=== PATIENT | male | born 1995 | race Hispanic/Latino ===

== ENCOUNTER 2018-06-26 13:08 | Emergency (ER) | payer MEDICAID ==
[~2018-06-26 13:08] MED LIST: CIPR-279 PO; flomax PO; tramadol PO
[2018-06-26 14:05] LABS: BASOPHILS % (AUTO) 0.8 % (0.0-5.0); EOSINOPHILS % (AUTO) 1.7 % (0.0-8.0); HEMATOCRIT 43.8 % (42-54); LYMPHOCYTES % (AUTO) 19.2 % (21.0-51.0); MEAN CORPUSCULAR HEMOGLOBIN 28.1 pg (27.0-33.0); MEAN CORPUSCULAR HGB CONC 33.7 g/dL (32.0-36.0); MEAN CORPUSCULAR VOLUME 83.3 fL (79-99); MONOCYTES % (AUTO) 3.9 % (3.0-13.0); NEUTROPHILS % (AUTO) 74.4 % (40.0-77.0); NUCLEATED RED BLOOD CELLS 0.1 % (0.0-0.19); PLATELET COUNT (AUTO) 222 K/uL (130-400); RED BLOOD CELL COUNT(AUTO) 5.26 MIL/uL (4.50-6.20); RED CELL DISTRIBUTION WIDTH 15.2 % (11.0-15.5); WHITE BLOOD COUNT (AUTO) 8.9 K/uL (4.8-10.8)
[2018-06-26 15:03] LABS: APPEARANCE,URINE Cloudy (CLEAR); BILIRUBIN,URINE Negative (NEGATIVE); COLOR,URINE Yellow (YELLOW); GLUCOSE, URINE (UA) Negative (NEGATIVE); KETONES,URINE Negative (NEGATIVE); LEUKOCYTE ESTERASE ,URINE Negative (NEGATIVE); NITRATE,URINE Negative (NEGATIVE); OCCULT BLOOD,URINE Negative (NEGATIVE); PROTEIN,URINE Negative (NEGATIVE)
[2018-06-26 15:10] LABS: AMORPHOUS SEDIMENT,UR Rare /LPF (None Seen)
[2018-06-26 15:11] LABS: MUCUS,URINE Few LPF (None Seen); SQUAMOUS EPITHELIAL CELL,UR 0-2 /HPF (0-2)
[2018-06-26 15:12] LABS: BACTERIA,URINE Few /HPF (None Seen); RBC,URINE 0-1 /HPF (0-1); WBC,URINE 0-1 /HPF (0-1)
[2018-06-26 16:43] LABS: BILIRUBIN,TOTAL 0.6 mg/dL (0.2-1.0); CREATININE 0.2 mg/dL (0.5-1.5); POTASSIUM 3.7 mmol/L (3.5-5.1); TOTAL PROTEIN, SERUM 8.4 g/dL (6.0-8.3)
[2018-06-26] MEDS ORDERED: KETOROLAC TROMETHAMINE 15MG/ML ONE (17:17)
== END 2018-06-26 17:56 | disposition home or self-care (01) ==
LOC: EDH 13:08
DX: K59.00 Constipation, unspecified (principal)
CPT/HCPCS: 36415; 76705; 80053; 81001; 83690; 85025; 96374; 99285; J1885

== ENCOUNTER 2019-04-02 10:42 | Emergency (ER) | payer MEDICAID ==
[2019-04-02] MEDS ORDERED: IPRATROPIUM/ALBUTEROL SULFATE 3 ML SOLUTION IH ONE (11:09)
[2019-04-02 11:27] LABS: BASOPHILS % (AUTO) 0.7 % (0.0-5.0); EOSINOPHILS % (AUTO) 1.8 % (0.0-8.0); HEMATOCRIT 44.3 % (42-54); LYMPHOCYTES % (AUTO) 23.4 % (21.0-51.0); MEAN CORPUSCULAR HEMOGLOBIN 27.1 pg (27.0-33.0); MEAN CORPUSCULAR HGB CONC 32.6 g/dL (32.0-36.0); MEAN CORPUSCULAR VOLUME 83.1 fL (79-99); MONOCYTES % (AUTO) 5.4 % (3.0-13.0); NEUTROPHILS % (AUTO) 68.7 % (40.0-77.0); PLATELET COUNT (AUTO) 206 K/uL (130-400); RED BLOOD CELL COUNT(AUTO) 5.33 MIL/uL (4.50-6.20); RED CELL DISTRIBUTION WIDTH 15.7 % (11.0-15.5); WHITE BLOOD COUNT (AUTO) 7.8 K/uL (4.8-10.8)
[2019-04-02 11:37] LABS: CREATININE 0.2 mg/dL (0.5-1.5); POTASSIUM 3.6 mmol/L (3.5-5.1)
[2019-04-02 11:43] LABS: ALBUMIN 3.7 g/dL (3.5-5.0); BILIRUBIN,TOTAL 0.4 mg/dL (0.2-1.0); TOTAL PROTEIN, SERUM 7.4 g/dL (6.0-8.3)
== END 2019-04-02 14:27 | disposition home or self-care (01) ==
LOC: EDH 10:42
DX: J20.9 Acute bronchitis, unspecified (principal); M41.9 Scoliosis, unspecified
CPT/HCPCS: 36415; 71045; 80053; 82550; 84484; 85025; 93005; 94640

== ENCOUNTER 2019-09-05 08:27 | Emergency (ER) | payer MEDICAID ==
[2019-09-05 08:57] LABS: BASOPHILS % (AUTO) 0.2 % (0.0-5.0); EOSINOPHILS % (AUTO) 1.8 % (0.0-8.0); LYMPHOCYTES % (AUTO) 28.4 % (21.0-51.0); MEAN CORPUSCULAR HEMOGLOBIN 26.4 pg (27.0-33.0); MEAN CORPUSCULAR HGB CONC 30.9 g/dL (32.0-36.0); MEAN CORPUSCULAR VOLUME 85.4 fL (79-99); MONOCYTES % (AUTO) 5.3 % (3.0-13.0); NEUTROPHILS % (AUTO) 63.5 % (40.0-77.0); PLATELET COUNT (AUTO) 262 K/uL (130-400); RED BLOOD CELL COUNT(AUTO) 5.27 MIL/uL (4.50-6.20); RED CELL DISTRIBUTION WIDTH 15.3 % (11.0-15.5); WHITE BLOOD COUNT (AUTO) 9.2 K/uL (4.8-10.8)
[2019-09-05] MEDS ORDERED: IPRATROPIUM/ALBUTEROL SULFATE 3 ML SOLUTION IH ONE (09:00)
[2019-09-05 09:12] LABS: CREATININE 0.3 mg/dL (0.5-1.5); POTASSIUM 3.8 mmol/L (3.5-5.1)
[2019-09-05 09:16] LABS: ALBUMIN 3.9 g/dL (3.5-5.0); BILIRUBIN,DIRECT 0.1 mg/dL (0.0-0.3); BILIRUBIN,TOTAL 0.3 mg/dL (0.2-1.0); TOTAL PROTEIN, SERUM 7.8 g/dL (6.0-8.3)
[2019-09-05 10:37] LABS: B-TYPE NATRIURETIC PEPTIDE < 5 pg/mL (0-100)
== END 2019-09-05 10:22 | disposition home or self-care (01) ==
LOC: EDH 08:27
DX: R06.00 Dyspnea, unspecified (principal); G82.20 Paraplegia, unspecified; M41.9 Scoliosis, unspecified; Z91.010 Allergy to peanuts; Z91.018 Allergy to other foods
CPT/HCPCS: 36415; 71045; 80048; 80076; 83690; 83880; 84484; 85025; 93005; 94640

== ENCOUNTER 2021-02-07 14:30 | Emergency (ER) | payer MEDICAID | END 2021-02-07 16:23 | disposition left against medical advice (07) | LOC: EDH 14:30 | DX: R10.9 Unspecified abdominal pain (principal); Z91.010 Allergy to peanuts; Z91.018 Allergy to other foods; Z53.21 Procedure and treatment not carried out due to patient leaving prior to being seen by health care provider ==

== ENCOUNTER 2024-05-01 18:09 | Emergency (ER) | payer MEDICAID ==
[~2024-05-01] VITALS: Ht 162.6 cm; Wt 76.7 kg
[2024-05-01 20:26] LABS: BASOPHILS # (AUTO) 0.04 K/uL (0.00-0.20); BASOPHILS % (AUTO) 0.4 % (0.0-5.0); EOSINOPHILS # (AUTO) 0.16 K/uL (0.00-0.70); EOSINOPHILS % (AUTO) 1.7 % (0.0-8.0); HEMATOCRIT 46.3 % (42-54); IMMATURE GRANULOCYTE ABSOLUTE 0.03 K/uL (0-1); LYMPHOCYTES # (AUTO) 2.4 K/uL (1.0-4.8); LYMPHOCYTES % (AUTO) 26.3 % (21.0-51.0); MEAN CORPUSCULAR HEMOGLOBIN 26.5 pg (27.0-33.0); MEAN CORPUSCULAR HGB CONC 32.2 g/dL (32.0-36.0); MEAN CORPUSCULAR VOLUME 82.2 fL (79-99); MONOCYTES # (AUTO) 0.5 K/uL (0.1-1.0); MONOCYTES % (AUTO) 4.9 % (3.0-13.0); NEUTROPHILS # (AUTO) 6.1 K/uL (1.8-7.7); NEUTROPHILS % (AUTO) 66.4 % (40.0-77.0); PLATELET COUNT (AUTO) 279 K/uL (130-400); RED BLOOD CELL COUNT(AUTO) 5.63 MIL/uL (4.50-6.20); RED CELL DISTRIBUTION WIDTH 15.5 % (11.0-15.5); WHITE BLOOD COUNT (AUTO) 9.3 K/uL (4.8-10.8)
[2024-05-01 20:39] LABS: CREATININE 0.4 mg/dL (0.5-1.3); POTASSIUM 3.5 mmol/L (3.5-5.1)
[2024-05-01 20:44] LABS: APPEARANCE,URINE CLEAR (CLEAR); BILIRUBIN,URINE NEGATIVE (NEGATIVE); COLOR,URINE LIGHT-YELLOW (YELLOW); GLUCOSE, URINE (UA) NEGATIVE (NEGATIVE); KETONES,URINE 20 mg/dL (NEGATIVE); LEUKOCYTE ESTERASE ,URINE NEGATIVE Leu/uL (NEGATIVE); NITRATE,URINE NEGATIVE (NEGATIVE); OCCULT BLOOD,URINE MODERATE (NEGATIVE); PROTEIN,URINE 10 mg/dL (NEGATIVE); UROBILINOGEN,URINE 0.2 mg/dL (0.2-1.0)
[2024-05-01 20:49] LABS: ALBUMIN 3.8 g/dL (3.5-5.0); BILIRUBIN,TOTAL 0.6 mg/dL (0.2-1.0); TOTAL PROTEIN, SERUM 7.8 g/dL (6.0-8.3)
[2024-05-01 20:51] LABS: ADD UA MICROSCOPIC YES
[2024-05-01 20:52] LABS: AMPHET/METH SCREEN,URINE NEGATIVE (NEGATIVE); BARBITURATE SCREEN, URINE NEGATIVE (NEGATIVE); BENZODIAZEPINES SCREEN,URINE NEGATIVE (NEGATIVE); CANNABINOID SCREEN,URINE NEGATIVE (NEGATIVE); COCAINE SCREEN,URINE NEGATIVE (NEGATIVE); OPIATE SCREEN,URINE NEGATIVE (NEGATIVE); PHENCYCLIDINE SCREEN,URINE NEGATIVE (NEGATIVE)
[2024-05-01 20:56] LABS: BACTERIA,URINE RARE /HPF (None Seen); MUCUS,URINE FEW LPF (None Seen); RBC,URINE 26-50 /HPF (0-1); SQUAMOUS EPITHELIAL CELL,UR RARE /HPF (0-2)
[2024-05-01 21:43] VITALS: BP 121/74; PULSE 88; RESP 20; O2SAT 97
== END 2024-05-01 21:56 | disposition home or self-care (01) ==
LOC: EDH 18:09
DX: F41.9 Anxiety disorder, unspecified (principal); R07.89 Other chest pain; Z79.899 Other long term (current) drug therapy; Z98.890 Other specified postprocedural states
CPT/HCPCS: 36415; 80053; 80305; 81001; 84484; 85025; 93005

== ENCOUNTER 2024-07-11 21:18 | Emergency (ER) | payer MEDICAID ==
[~2024-07-11] VITALS: Ht 167.6 cm; Wt 77.1 kg
[~2024-07-11 21:18] MED LIST changes: +HYDR-3421 PO
--- NOTE | 2024-07-11 21:22 | NUR ---
COVID, FLU AND STREP SWABS COLLECTED AND SENT [facility] PROVIDED
[2024-07-11 21:48] LABS: APPEARANCE,URINE CLEAR (CLEAR); BILIRUBIN,URINE NEGATIVE (NEGATIVE); COLOR,URINE LIGHT-YELLOW (YELLOW); GLUCOSE, URINE (UA) NEGATIVE (NEGATIVE); KETONES,URINE 150 mg/dL (NEGATIVE); LEUKOCYTE ESTERASE ,URINE NEGATIVE Leu/uL (NEGATIVE); NITRATE,URINE NEGATIVE (NEGATIVE); OCCULT BLOOD,URINE MODERATE (NEGATIVE); PROTEIN,URINE NEGATIVE (NEGATIVE); UROBILINOGEN,URINE 0.2 mg/dL (0.2-1.0)
[2024-07-11 21:51] LABS: ADD UA MICROSCOPIC YES
[2024-07-11 21:52] LABS: MUCUS,URINE RARE LPF (None Seen); RBC,URINE >100 /HPF (0-1); SQUAMOUS EPITHELIAL CELL,UR RARE /HPF (0-2)
[2024-07-11 21:58] LABS: RAPID GROUP A STREP negative (NEGATIVE)
[2024-07-11 22:06] LABS: SARS-CoV-2, RNA, NAAT NEGATIVE SARS CoV-2 (NEGATIVE)
[2024-07-11 22:08] LABS: INFLUENZA TYPE A Negative For Type A (NEGATIVE); INFLUENZA TYPE B Negative For Type B (NEGATIVE)
[2024-07-11 22:09] LABS: BASOPHILS # (AUTO) 0.03 K/uL (0.00-0.20); BASOPHILS % (AUTO) 0.3 % (0.0-5.0); EOSINOPHILS # (AUTO) 0.09 K/uL (0.00-0.70); HEMATOCRIT 49.3 % (42-54); IMMATURE GRANULOCYTE ABSOLUTE 0.05 K/uL (0-1); LYMPHOCYTES # (AUTO) 2.4 K/uL (1.0-4.8); LYMPHOCYTES % (AUTO) 27.9 % (21.0-51.0); MEAN CORPUSCULAR HEMOGLOBIN 26.4 pg (27.0-33.0); MEAN CORPUSCULAR HGB CONC 32.5 g/dL (32.0-36.0); MEAN CORPUSCULAR VOLUME 81.4 fL (79-99); MONOCYTES # (AUTO) 0.3 K/uL (0.1-1.0); MONOCYTES % (AUTO) 3.9 % (3.0-13.0); NEUTROPHILS # (AUTO) 5.7 K/uL (1.8-7.7); NEUTROPHILS % (AUTO) 66.3 % (40.0-77.0); PLATELET COUNT (AUTO) 298 K/uL (130-400); RED BLOOD CELL COUNT(AUTO) 6.06 MIL/uL (4.50-6.20); WHITE BLOOD COUNT (AUTO) 8.6 K/uL (4.8-10.8)
[2024-07-11] MEDS: ondanSETRON 4MG INJ IVP ONE (22:10)
[2024-07-11] MEDS: 0.9%NACL 1000ML 1,000 ML IV ONE (22:10)
[2024-07-11] MEDS: PANTOPrazole 40 MG/VIAL IVP ONE (22:10)
[2024-07-11 22:17] LABS: CREATININE 0.2 mg/dL (0.5-1.3); POTASSIUM 3.6 mmol/L (3.5-5.1)
[2024-07-11 22:21] LABS: ALBUMIN 4.2 g/dL (3.5-5.0); BILIRUBIN,DIRECT 0.1 mg/dL (0.0-0.3); BILIRUBIN,TOTAL 0.6 mg/dL (0.2-1.0); TOTAL PROTEIN, SERUM 8.8 g/dL (6.0-8.3)
[2024-07-11] MEDS: ketOROlac 15MG/ML VIAL (15MG/ML) IV ONE (23:15)
[2024-07-11 23:23] VITALS: BP 138/88; PULSE 85; RESP 20; TEMP 98.8; O2SAT 97
[2024-07-11] MEDS ORDERED: ONDA-243 PO (23:52)
[2024-07-11] MEDS ORDERED: PANT20TA18 PO (23:52)
--- NOTE | 2024-07-11 23:52 | ERN ---
ED Note History of Present Illness Stated Complaint: N/V, HEADACHE, RT ABD PAIN Chief Complaint: Multiple Complaints Time Seen by MD: 21:19 Time Seen by Midlevel: 21:19 Dictation: The patient is a 29-year-old male with a history of spinal muscular atrophy, spinal surgery who presents to the emergency department with complaints of right upper abdominal pain onset three days ago associated with nausea, one episode of vomiting. Patient denies any diarrhea and reports occasional constipation. Denies fevers or urinary discomfort. Allergies: Coded Allergies: No Known Drug Allergies (Unverified Allergy, Unknown, 05/01/24) nut - unspecified (Unverified Allergy, Unknown, 07/11/24) Home Meds Active Scripts Hydroxyzine HCl (Hydroxyzine HCl) 25 Mg Tablet, 25 MG PO Q6HPRN PRN for ANXIETY/AGITATION for 14 Days, #56 TAB Prov:DOLLY ADDISON BUILDING COORDINATOR 05/16/24 Reported Medications Ciprofloxacin HCl (Cipro) 250 Mg Tablet, 250 MG PO BID, TAB 07/14/14 [flomax] No Conflict Check, TAB PO HS 07/13/14 [tramadol] No Conflict Check, TAB PO BID 07/13/14 Past Medical History Past Medical History: Kidney Stone, Other Additional Past Medical Hx: SPINAL MUSCULAR ATROPHY TYPE 2, SCOLIOSIS Surgical History: Other Surgical History Other: HOMERO HERNANDEZ RN Note Reviewed/Agreed w/PFSH: Yes Review of System Dictation Constitutional: Negative for fever,chills, and weight loss Eyes: Negative for injury, pain,redness, and discharge ENT: Negative for injury,pain or swelling Cardiovascular: Negative for chest pain, palpitations, and edema Respiratory: Negative for shortness of breath, cough, and wheezing, Abdomen/GI: Negative for \diarrhea, and constipation positive for abdominal pain, nausea, vomiting Back: Negative for injury and pain : Negative for injury, bleeding and discharge MS/Extremity: Negative for injury and deformity Skin: Negative for rash, and discoloration Neuro: Negative for headache, weakness, numbness, tingling, and seizure Psych: Negative for suicide ideation, homicidal ideation, and hallucinations Initial Vital Sign VS Vital Signs Date Time Temp Pulse Resp B/P (MAP) Pulse Ox O2 Delivery O2 Flow Rate FiO2 07/11/24 21:19 99.1 102 20 138/96 99 Room Air 07/11/24 21:52 0 N/A Physical Exam Dictation Vital Signs reviewed General Appearance: Alert, oriented x 3, no acute distress, well developed, nour ished. Head and Face: non-traumatic. Eyes: PERRL, pink conjunctivas, eyelid no trauma, anterior chamber with arcus senilis. Ears: Pinnas intact and no signs of trauma or erythema ear canals clear and no discharge TM no erythema Nose: No discharge, no bleeding. Oropharynx: Mouth normal, tongue pink. pharynx clear,no erythema, tonsils no exudates, no abscesses noted, mucous memb javier moist Neck: Supple, non-tender, no thyromegaly, no masses, no JVD, no bruits Breast:Deferred Chest:No tenderness, no crepitus, no paradoxical movement, no retractions Lungs:Clear, well-ventilated, symmetric, no rales, no wheezing, no rhonchi, no s tridor, good breath sounds bilaterally Heart: Regular rate, regular rhythm, no murmur, no gallops Vascular: no peripheral edema, Abdomen: Soft, positive bowel sounds, nondistended, no guarding, nontender, no rebound, no masses no hepatomegaly, no splenomegaly, no Samayoa's sign, no hernias. Rectal: Deferred Genital: Deferred Neurological: Normal speech, sensory function intact Musculoskeletal: Neck nontender, full range of motion, back nontender, Extremities: nontender, Skin: Color pink, dry, no turgor, no rash, no lacerations, no abrasions, no contusions. Lymphatic: Deferred Results (Laboratory/Radiology) Laboratory/Radiology Laboratory Tests Test 07/11/24 21:24 07/11/24 21:42 07/11/24 22:02 Influenza Type A Antigen Negative For Type A Influenza Type B Antigen Negative For Type B SARS-CoV-2, RNA, NAAT NEGATIVE SARS CoV-2 Group A Streptococcus Rapid negative (NEGATIVE) Urine Color LIGHT-YELLOW (YELLOW) Urine Appearance CLEAR (CLEAR) Urine pH 7.0 (5.0-8.0) Urine Specific [place] 1.015 (1.001-1.031) Urine Protein NEGATIVE mg/dL (NEGATIVE) Urine Glucose (UA) NEGATIVE mg/dL (NEGATIVE) Urine Ketones 150 mg/dL (NEGATIVE) H Urine Occult Blood MODERATE (NEGATIVE) H Urine Nitrate NEGATIVE (NEGATIVE) Urine Bilirubin NEGATIVE mg/dL (NEGATIVE) Urine Urobilinogen 0.2 mg/dL (0.2-1.0) Urine Leukocyte Esterase NEGATIVE Huey/uL Urine RBC >100 /HPF (0-1) H Urine WBC 2-5 /HPF (0-1) H Urine Squamous Epithelial Cells RARE /HPF (0-2) Urine Bacteria None /HPF (None Seen) White Blood Count 8.6 K/uL (4.8-10.8) Red Blood Count 6.06 MIL/uL (4.50-6.20) Hemoglobin 16.0 g/dL (14.0-18.0) Hematocrit 49.3 % (42-54) Mean Corpuscular Volume 81.4 fL (79-99) Mean Corpuscular Hemoglobin 26.4 pg (27.0-33.0) L Mean Corpuscular Hemoglobin Concent 32.5 g/dL (32.0-36.0) Red Cell Distribution Width 15.0 % (11.0-15.5) Platelet Count 298 K/uL (130-400) Mean Platelet Volume 9.9 fL (7.5-10.5) Immature Granulocyte % (Auto) 0.6 % (0-1) Neutrophils (%) (Auto) 66.3 % (40.0-77.0) Lymphocytes (%) (Auto) 27.9 % (21.0-51.0) Monocytes (%) (Auto) 3.9 % (3.0-13.0) Eosinophils (%) (Auto) 1.0 % (0.0-8.0) Basophils (%) (Auto) 0.3 % (0.0-5.0) Neutrophils # (Auto) 5.7 K/uL (1.8-7.7) Lymphocytes # (Auto) 2.4 K/uL (1.0-4.8) Monocytes # (Auto) 0.3 K/uL (0.1-1.0) Eosinophils # (Auto) 0.09 K/uL (0.00-0.70) Basophils # (Auto) 0.03 K/uL (0.00-0.20) Absolute Immature Granulocyte (auto 0.05 K/uL (0-1) Nucleated Red Blood Cells 0.0 % (0.0-0.19) Sodium Level 137 mmol/L (136-145) Potassium Level 3.6 mmol/L (3.5-5.1) Chloride Level 100 mmol/L (101-111) L Carbon Dioxide Level 28 mmol/L (21-32) Blood Urea Nitrogen 4 mg/dL (7-18) L Creatinine 0.2 mg/dL (0.5-1.3) L Glomerular Filtration Rate Calc 186 mL/min (>90) Random Glucose 88 mg/dL (70-105) Total Calcium 9.8 mg/dL (8.5-10.1) Total Bilirubin 0.6 mg/dL (0.2-1.0) Direct Bilirubin 0.1 mg/dL (0.0-0.3) Aspartate Amino Transf (AST/SGOT) 14 U/L (10-37) Alanine Aminotransferase (ALT/SGPT) 36 U/L (12-78) Alkaline Phosphatase 83 U/L (50-136) Troponin I High Sensitivity < 4 ng/L (4-75) L Total Protein 8.8 g/dL (6.0-8.3) H Albumin 4.2 g/dL (3.5-5.0) Lipase 46 U/L (16-77) Labs Reviewed?: Yes EKG: (+) NSR, (+) unchanged EKG Comment: EKG 07/11/2024 2300 ventricular rate 70, regular rate and rhythm, normal sinus rhythm, no STEMI. ED Course ED Course Orders Procedure Category Date Status Time Cbc With Differential LAB 07/11/24 Complete 21:20 Basic Metabolic Panel LAB 07/11/24 Complete 21:20 Urinalysis Profile LAB 07/11/24 Complete 21:20 Covid Rna Naat LAB 07/11/24 Complete 21:20 Influenza Type A & B, LAB 07/11/24 Complete Rapid 21:20 Rapid (Group A Strep) LAB 07/11/24 Complete 21:20 Chest 1vw RAD 07/11/24 Taken 21:20 Ondansetron 4mg Inj PHA 07/11/24 Complete (Zofran 4mg Inj) 22:00 Pantoprazole 40mg Inj PHA 07/11/24 Complete (Protonix 40mg Inj 22:00 0.9%Nacl 1000ml (Ns PHA 07/11/24 Complete 1000ml) 22:00 Hepatic Function Panel LAB 07/11/24 Complete 21:20 Lipase LAB 07/11/24 Complete 21:20 Ketorolac PHA 07/11/24 Complete Tromethamine 15mg/Ml 23:00 Troponin I High LAB 07/11/24 Complete Sensitivity 22:55 12 Lead Ekg Tracing- EKG 07/11/24 Logged Technical 22:55 Current Medications Medications (Trade) Dose Ordered Sig/Dany Route PRN Reason Start Time Stop Time Status Last Admin Dose Admin Ketorolac Tromethamine (toRADol) 15 mg ONCE ONCE IV 07/11/24 23:00 07/11/24 23:01 DC 07/11/24 23:15 Ondansetron HCl (zoFRAN 4MG INJ) 4 mg ONCE ONCE IVP 07/11/24 22:00 07/11/24 22:01 DC 07/11/24 22:10 Pantoprazole Sodium (PROTonix 40MG INJ) 40 mg ONCE ONCE IVP 07/11/24 22:00 07/11/24 22:01 DC 07/11/24 22:10 Sodium Chloride 1,000 ml @ 0 mls/hr ONCE ONCE IV 07/11/24 22:00 07/11/24 22:01 DC 07/11/24 22:10 Vital Signs Date Time Temp Pulse Resp B/P (MAP) Pulse Ox O2 Delivery O2 Flow Rate FiO2 07/11/24 23:23 98.8 85 20 138/88 97 Room Air* 0 N/A Nasal Cannula* 07/11/24 21:52 98.8 77 20 140/95 97 Room Air* 0 N/A Nasal Cannula* 07/11/24 21:19 99.1 102 20 138/96 99 Room Air HEART Score Response (Comments) Value History: Low suspicion (0) 0 EKG: Repolarization changes 1 Age: < 45yrs (0) 0 Risk Factors: No known risk factors (0) 0 Initial Troponin: Normal limit (0) 0 Total 1 Medical Decision Making MDM The patient is a 29-year-old male with a history of spinal muscular atrophy, spinal surgery who presents to the emergency department with complaints of right upper abdominal pain onset three days ago associated with nausea, one episode of vomiting. Patient denies any diarrhea and reports occasional constipation. Denies fevers or urinary discomfort. Differential diagnosis: Gastritis, cholecystitis, gastroenteritis, electrolyte imbalance, ACS During reassessment. Patient reports his pain is actually in his right upper chest. Denies any recent trauma. EKG and troponin odor. CBC showed no leukocytosis, no anemia, chemistry showed mild hypochloremia, normal liver functions, negative lipase, normal kidney function. Chest x-ray unremarkable. Patient reports decrease in discomfort. Labs and imaging discussed with the patient who agrees to follow up with PCP. Need for hospitalization: Patient does not meet criteria for hospitalization. There are no social concerns with this patient. DX & DISP Disposition: Discharge Departure Impression: Primary Impression: Atypical chest pain Additional Impression: Gastritis Condition: Stable Scripts Ondansetron (Ondansetron Odt) 4 Mg Tab.rapdis 4 MG PO Q6HPRN PRN for nausea, #16 TAB 0 Refills Prov: RUI POOLE 07/11/24 Pantoprazole Sodium (Pantoprazole Sodium) 20 Mg Tablet.dr 1 TAB PO DAILY for 30 Days, #30 TAB 0 Refills Prov: RUI POOLE 07/11/24 Additional Instructions: Please follow up with primary doctor in 1-2 days. Please return to ER if symptoms worsen FOLLOW-UP WITH PRIMARY CARE PROVIDER IN 1 TO 2 DAYS. TAKE MEDICATIONS DIREC DANIEL HERE IN THE EMERGENCY ROOM. OKAY TO CONTINUE HOME MEDICATIONS UNLESS OTHERWISE DISCUSSED DURING YOUR VISIT IN THE EMERGENCY ROOM TODAY. RETURN TO YOUR NEAREST EMERGENCY ROOM IF SYMPTOMS WORSEN OR IF THERE IS NO IMPROVEMENT. CALL 911 IF YOU NEED IMMEDIATE ASSISTANCE. TAKE TYLENOL OR MOTRIN [id number] NEEDED AND IF NO CONTRAINDICATIONS ARE PRESENT. INCREASE ORAL HYDRATION. A WOUND CULTURE OR URINE CULTURE WAS ORDERED HERE IN THE EMERGENCY ROOM DEPARTMENT PLEASE FOLLOW-UP WITH PRIMARY CARE PROVIDER AND ADVISE THEM TO GET REPEAT PORTS FROM OUR FACILITY. IF YOU HAD ANY AMY WRAP/SPLINTS THAT WERE APPLIED HERE, PLEASE DO NOT REMOVE THEM UNTIL YOU SEE YOUR PRIMARY CARE OR SPECIALTY. Referrals: DARLENE VILLASENOR CNM (PCP) Time of Disposition: 23:51 I have reviewed the case, and I agree with, Diagnosis and Plan RUI POOLE Jul 11, 2024 23:52
--- NOTE | 2024-07-12 08:16 | HMCIMG ---
PORTABLE CHEST RADIOGRAPH INDICATION: COUGH COMPARISON: None FINDINGS: Heart size is normal. The pulmonary vascularity and nilesh appear normal. No abnormal pulmonary parenchymal opacity or consolidation identified. No significant pleural effusion noted. No pneumothorax detected. Thoracolumbar spinal hardware remains normal in appearance. IMPRESSION: No radiographic evidence for any acute cardiopulmonary process.
--- NOTE | 2024-07-13 17:57 | EKG ---
[facility] Test Date: 2024-07-11 Test Time: 23:00:20 Pat Name: MOUSTAPHA DOMINGUEZ Department: [facility] Room: Gender: M Emergency Medical Dispatcher: [id number] : 1995 Requested By: RUI POOLE Order Number: [id number] Reading MD: Abe Stevenson Measurements Intervals Crooks Rate: 70 P: 15 WA: 168 QRS: 74 QRSD: 91 T: 38 QT: 377 QTc: 408 Interpretive Statements Sinus rhythm ST elevation suggests acute pericarditis Compared to ECG 05/01/2024 18:22:39 No significant changes Electronically Signed On 07-16-2024 16:07:04 CDT by Abe Stevenson Please click the below link to view image of tracing.
== END 2024-07-12 00:16 | disposition home or self-care (01) ==
LOC: EDH 21:18
DX: K29.70 Gastritis, unspecified, without bleeding (principal); Z20.822 Contact with and (suspected) exposure to COVID-19; R11.2 Nausea with vomiting, unspecified; R07.89 Other chest pain; R10.11 Right upper quadrant pain; K59.00 Constipation, unspecified; Z79.2 Long term (current) use of antibiotics; Z79.899 Other long term (current) drug therapy; Z87.442 Personal history of urinary calculi
CPT/HCPCS: 99285; 96374; 96375; 71045; 87635; 80076; 84484; 80048; 83690; 85025; 87880; 87804 ×2; 81001; 36415; 93005; J7030; J2405; J2470; J1885

== ENCOUNTER 2024-08-19 00:38 | Emergency (ER) | payer MEDICAID ==
[~2024-08-19] VITALS: Ht 162.6 cm; Wt 77.1 kg
[~2024-08-19 00:38] MED LIST changes: +ONDA-243 PO; +PANT20TA18 PO
[2024-08-19] MEDS ORDERED: LORazepam 1 MG TABLET PO ONE (01:30)
[2024-08-19 02:00] VITALS: BP 118/92; PULSE 94; RESP 18; TEMP 98.3; O2SAT 99
--- NOTE | 2024-08-19 02:24 | ERN ---
General Chief Complaint: Anxiety/Panic Attack Stated Complaint: ANXIETY Time Seen by MD: 00:55 History of Present Illness Initial Comments Mr. Browne is a very pleasant 29-year-old male who comes in today with a chief complaint of anxiety. Patient has congenital musculoskeletal issues and was being lifted on his home your life. Patient reports that he momentarily need a new wipes. Patient states that while he was in the holding left he started feeling anxiety anxious. Patient called his mother and decided to come to the emergency department Allergies: Coded Allergies: No Known Drug Allergies (Unverified Allergy, Unknown, 05/01/24) nut - unspecified (Unverified Allergy, Unknown, 07/11/24) Home Meds Active Scripts Ondansetron (Ondansetron Odt) 4 Mg Tab.rapdis, 4 MG PO Q6HPRN PRN for nausea, #16 TAB 0 Refills Prov:KARL POOLE MD 07/11/24 Pantoprazole Sodium (Pantoprazole Sodium) 20 Mg Tablet.dr, 1 TAB PO DAILY for 30 Days, #30 TAB 0 Refills Prov:KARL POOLE MD 07/11/24 Hydroxyzine HCl (Hydroxyzine HCl) 25 Mg Tablet, 25 MG PO Q6HPRN PRN for ANXIE TY/AGITATION for 14 Days, #56 TAB Prov:DOLLY ADDISON NP 05/16/24 Reported Medications Ciprofloxacin HCl (Cipro) 250 Mg Tablet, 250 MG PO BID, TAB 07/14/14 [flomax] No Conflict Check, TAB PO HS 07/13/14 [tramadol] No Conflict Check, TAB PO BID 07/13/14 Past Medical History Past Medical History: Kidney Stone, Other Medical History Other: SPINAL MUSCULAR ATROPHY TYPE 2, SCOLIOSIS Past Surgical History: Other Surgical History Other: VALENTIN RODS ROS Dictation Constitutional: Negative for fever,chills, and weight loss Eyes: Negative for injury, pain,redness, and discharge ENT: Negative for injury,pain or swelling Cardiovascular: Negative for chest pain, palpitations, and edema Respiratory: Negative for shortness of breath, cough, and wheezing, Abdomen/GI: Negative for abdominal pain, nausea, vomiting, diarrhea, and co nstipation Back: Negative for injury and pain : Negative for injury, bleeding and discharge MS/Extremity: Negative for injury and deformity Skin: Negative for rash, and discoloration Neuro: Negative for headache, weakness, numbness, tingling, and seizure Psych: Positive for anxiety Physical Exam Physical Exam Dictation General: awake, alert, NAD Head/Face: Normocephalic, atraumatic Eyes: PERRL, EOMI, vision at baseline ENT: oral cavity clear, Neck: Trachea midline, supple Cardiovascular: RRR, normal S1/S2 Respiratory: CTAB, no respiratory distress Abdomen: Soft, non-tender, non-distended Skin: Warm, dry, normal turgor, no rash MS/Extremity: Congenital musculoskeletal contractures Neuro: COAx4, Psych: Anxious MDM Patient was had improved anxiety with Ativan. Advised patient to consider following up with his primary care physician/psychiatrist for further assistance MDM: Differential diagnosis: Anxiety/panic attack Rationale: Tests considered and ordered secondary to shared decision making include: Previous outside records reviewed: Old ER visits. Risk of complication and/or morbidity or mortality of patient management: None Medications-Per medication reconciliation Need for hospitalization: Patient does not meet criteria for hospitalization. Need for emergency major/minor surgery: No There are no social concerns with this patient. Prescription drug management Prescriptions will include symptomatic care Patient's prior external medical records from other ER visits were reviewed by me as indicated. Prior testing and results from previous visits were reviewed. Prior tests were taken into account with medical decision making and resource utilization, independent historian/historians were used to obtain complete medical history. I independently interpreted the test that were performed, results were reviewed by me and considered findings on radiology if ordered. Medical management and examination interpretation discussions were had by me with other qualified healthcare professionals as indicated for the patient's care. ED Course Orders Procedure Category Date Status Time Lorazepam 1 Mg PHA 08/19/24 In Process (Ativan) 01:30 Current Medications Medications (Trade) Dose Ordered Sig/Dany Route PRN Reason Start Time Stop Time Status Last Admin Dose Admin Lorazepam (AtiVAN) 1 mg ONCE ONCE PO 08/19/24 01:30 08/19/24 01:31 Vital Signs Date Time Temp Pulse Resp B/P (MAP) Pulse Ox O2 Delivery O2 Flow Rate FiO2 08/19/24 00:40 98.1 95 16 100/68 100 Room Air 0 DX & DISP Disposition: Discharge Departure Impression: Primary Impression: Anxiety Condition: Stable Additional Instructions: Please follow up with your primary care physician/psychiatrist for further continuance of care. If you have worsening anxiety chest pain or shortness of breath please come to the emergency department Referrals: DARLENE VILLASENOR CNM (PCP) FRANCHESCA CHAUDHARY MD Aug 19, 2024 02:24
== END 2024-08-19 03:12 | disposition home or self-care (01) ==
LOC: EDH 00:38
DX: F41.9 Anxiety disorder, unspecified (principal); Z79.899 Other long term (current) drug therapy; Z98.890 Other specified postprocedural states
CPT/HCPCS: 99284